=== PATIENT | female | born 1970 | race Caucasian/White ===

== ENCOUNTER 2024-03-21 08:50 | Outpatient (OUT) | payer OTHER, SELFPAY ==
--- NOTE | 2024-03-21 | CT_ITS ---
[address] [address] Patient Name: CONCHITA PFEIFFER MRN: [id number] date: 1970 Sex: F Assigned Patient Location: CT Current Patient Location: Accession/Order Number: [id number] Exam Date: 03/21/2024 09:15 Report Date: 03/22/2024 15:12 At the request of: CEDRIC BONILLA Procedure: CT soft tissue neck w con CT soft tissue neck w con, 03/21/2024 9:15 AM EDT INDICATION: Z98.890 Other specified postprocedural states COMPARISON: There is no appropriate prior study for comparison. TECHNIQUE: CT imaging of the neck were acquired with contrast. Supplemental 2D reformatted images were generated and reviewed as needed. Dose reduction techniques were achieved by using automated exposure control and/or adjustment of mA and/or kV according to patient size and/or use of iterative reconstruction technique. FINDINGS: No abnormality of the base of skull is noted. The nasopharynx, hypopharynx and oral cavity are unremarkable. The parotids, submandibular glands are unremarkable. The larynx is unremarkable. No abnormality of paraglottic fat is noted. There is no lymph node enlargement by size criteria. No retropharyngeal lymph node is noted. The thyroid gland is homogeneous. Focal narrowing of the oropharyngeal aerodigestive tract from soft palate to base of tongue measuring approximately 8.7 x 7.5 x 20 mm (AP, transverse, cc). There is no mass or compressive lesion in this area. There is focal narrowing of the trachea posterior to the thyroid measuring 1.3 x 0.8 x 2.3 cm (AP, transverse, cc).There is no mass or compressive lesion in this area. The visualized portions of lungs show mild groundglass opacity in the right upper lobe. There is no suspicious osteolytic or osteoblastic lesion. There are multilevel degenerative changes of cervical spine. CT/CT soft tissue neck w con IMPRESSION: Focal narrowing of the oropharyngeal aerodigestive tract from soft palate to base of tongue. Focal narrowing of the trachea posterior to the thyroid. No definite mass is noted. Groundglass opacity in the right upper lobe. Consider infectious or inflammatory process. Electronically authenticated by: NATHALIA CLEMENTS Date: 03/22/2024 15:12
== END 2024-03-21 08:51 | disposition home or self-care (01) ==
LOC: CT 08:50
PROVIDERS: PCP Nurse Practitioner Family; Visit Provider Nurse Practitioner Family
DX: Z98.890 Other specified postprocedural states (principal)
CPT/HCPCS: 70491; Q9967